=== PATIENT | female | born 1960 | race Caucasian/White ===

== ENCOUNTER 2024-07-13 22:44 | Emergency (ER) | payer BC ==
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
[2024-07-14 03:07] VITALS: BP 143/95; TEMP 97.7; O2SAT 99
== END 2024-07-13 22:56 | disposition home or self-care (01) ==
LOC: ER 22:44
DX: Z71.1 Person with feared health complaint in whom no diagnosis is made (principal)
CPT/HCPCS: 99283